=== PATIENT | female | born 1985 | race African-American/Black ===

== ENCOUNTER 2023-11-11 13:28 | Outpatient (REF) | payer BC, SELFPAY ==
--- NOTE | ~2023-11-11 | US_ITS ---
EXAMINATION: US PELVIS CLINICAL INFORMATION: History of uterine fibroids. COMPARISON: None available. TECHNIQUE: Ultrasound of the pelvis is performed using both transabdominal and transvaginal transducers along with Doppler. Transvaginal imaging is performed due to inadequate visualization transabdominally. FINDINGS: UTERUS: The uterus is anteverted and measures 8.8 x 5.9 x 6.4 cm. The double wall endometrial thickness is 6 mm. The uterus is smooth in contour and has normal myometrial echogenicity. 4 uterine fibroids are seen with 3 on the left side of the uterine body and one near the fundus. They range in size from 1.2 x 0.7 x 1.4 cm to 2.2 x 2.1 x 2.2 cm. ADNEXA: Both ovaries are visualized. There is normal color flow to the adnexa. There is no ovarian torsion. There is no pelvic ascites or fluid collection. Right ovary measures 2.8 x 1.9 x 2.0 cm for a volume of 5.6 mL. Left ovary measures 3.6 x 0.9 x 2.2 cm for a volume of 3.7 mL. US/US pelvic and transvaginal IMPRESSION: Uterine fibroids.
== END 2023-11-11 13:29 | disposition home or self-care (01) ==
LOC: HO.US 13:28
PROVIDERS: PCP Internal Medicine; Visit Provider Advanced Practice Midwife
DX: N92.0 Excessive and frequent menstruation with regular cycle (principal)
CPT/HCPCS: 76830; 76856

== ENCOUNTER 2025-04-16 14:09 | Outpatient (AMB) | payer BC, SELFPAY ==
--- NOTE | 2025-04-16 14:21 | A.OFFPC_ITS ---
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 Allergies Seasonal Allergies Allergy (Verified 04/16/25 14:25) Runny nose, watery eyes, SOB Red wine Allergy (Uncoded 04/16/25 14:25) Itchy Tobacco use date assessed: 04/16/25 Dental Screening Dental Screen Date: 04/16/25 Did you have a dental visit in the last 12 months?: Yes Did you have a dental problem in the last 6 months where you did not have access to dental care?: No Was dental information given to patient?: Patient has dentist HPI HPI Comments History of Present Illness Details This is a 39-year-old female with a past medical history of prediabetes, sickle cell trait, vitamin-D deficiency, anemia and seasonal allergies presenting to establish care. She transferred from [facility]. She is due for a physical exam. Patient endorses intermittent sensation of mild discomfort in her left ear since June of 2024. She has a history of seasonal allergies in his taking Zyrtec 10 mg daily for the past month. She was treated for an ear infection with antibiotics last June. She denies malodorous discharge, decreased hearing or hearing loss, dizziness or headache with this. No fevers or chills. She does have nasal congestion this allergy season. She would like to make sure she does not have an ear infection now. She endorses left knee pain since summer. Her chiropractor was working on it, but she recommended further evaluation. She had a remote history of knee trauma in her 20s. No recent trauma. Denies swelling, redness, tick bites, skin rashes. She will sometimes feel popping or clicking in her knee when she stretches. Her knee pain bothers her more when she is on stairs. Application of icy hot at night provides temporary relief. Patient was recently diagnosed with ADHD by the psychiatrist in [place]. They are reviewing treatment options. OBROSY is [facility]. Denies family history of colon cancer. We discussed colonoscopy screening at age 44 years. Patient usually gets recommended vaccination, but she did not get influenza vaccine this fall and had the flu. Patient had Tdap vaccine during her with her 4-year-old daughter. ROS: Constitutional: No unexplained weight loss, fever, chills, fatigue or night sweats. Eyes: No vision changes, blurry vision, double vision, eye pain, eye redness, eye discharge. ENT: No hearing loss, sinus pain, ear pain, sore throat, see HPI Respiratory: No shortness of breath, cough or sputum production. Cardiovascular: No chest pain, chest pressure or chest discomfort. No palpitations or pedal edema. Gastrointestinal: No anorexia, nausea, vomiting or diarrhea. No abdominal pain or blood in stool. Genitourinary: No dysuria, hematuria, urinary frequency. Neurologic: No headache, dizziness, syncope, unilateral weakness, ataxia, numbness or tingling in the extremities. Musculoskeletal: See HPI. Hematologic/Lymphatics: No bleeding or bruising. No painful lymph nodes. Skin: No rash or itching. Endocrine: No cold or heat intolerance. No polyuria or polydipsia. Psychiatric: No depression or anxiety. No SI/HI. Physical exam: Constitutional: Alert, in no distress. Head: Normocephalic. Eyes: Pupils are equal, round and reactive to light. Extraocular muscles intact. Ear, Nose and Throat: Canals clear. TMs normal celaya with bilateral tiny serous effusions. Nasal mucosa mildly pale and inferior turbinates 2+. No nasal discharge. Sinuses nontender. No oral lesions. Neck: Supple, Full range of motion. No lymphadenopathy. No palpable thyroid masses. Respiratory: Clear to auscultation. Cardiovascular: S1 S2 regular. No murmurs. Gastrointestinal: Abdomen soft, non-tender, non-distended. Normal bowel sounds. No palpable masses. Neurologic: No focal neurological deficits. Symmetric patellar reflexes. Moves all extremities spontaneously. Sensation intact bilaterally. Skin: No rashes. Knee: Full range of motion bilaterally. Bilateral anterior knee crepitus with flexion and extension. Tender medial aspect of the left knee. No laxity of the knee joints. Negative Yeimy maneuver bilaterally. Normal gait. No edema or discoloration. Extremities: Warm and well perfused. No clubbing, cyanosis or edema. Intact peripheral pulses bilaterally. Psychiatric: Normal mood and affect [facility] Medical History (Updated 04/16/25 @ 15:18 by KAIT Youssef) Anemia Vitamin D deficiency Sickle cell trait Routine physical examination Allergic rhinitis ADHD Discomfort of left ear Left knee pain Prediabetes Surgical History (Updated 04/16/25 @ 15:11 by KAIT Youssef) History of surgery on lower extremity History of hysteroscopy History of section Family History (Updated 04/16/25 @ 14:30 by Yvrose Dumont MA) Father Asthma Diabetes Cardiovascular disease Maternal Grandmother Cardiovascular disease Paternal Grandmother Alcoholism Maternal Grandfather Alcoholism Paternal Grandfather Alcoholism Sister Leukemia Social History [facility] Patient Tobacco Use Status: Never used Tobacco e-Cigarette/Vaping Use: Never Used Second Hand Smoke Exposure: No service: No Current occupational status: employed Current occupation: Professor Current occupational exposures/hazards: No Cognitive needs: No Hearing needs: No Vision needs: No Questionnaire PHQ-9 Over the last 2 weeks, how often have you been bothered by any of the following problems? 1. Little interest or pleasure in doing things: not at all 2. Feeling down, depressed, or hopeless: not at all 3. Trouble falling or staying asleep, or sleeping too much: not at all 4. Feeling tired or having little energy: not at all 5. Poor appetite or overeating: not at all 6. Feeling bad about yourself - or that you are a failure or have let yourself or your family down: not at all 7. Trouble concentrating on things, such as reading the newspaper or watching television: not at all 8. Moving or speaking so slowly that other people could have noticed. Or the opposite - being so fidgety or restless that you have been moving around a lot more than usual: not at all 9. Thoughts that you would be better off or of hurting yourself in some way: not at all Total score: 0 Depression Screening Interpretation: Negative Depression Screening Done: Yes 03356 - PHQ-9 Billing: Yes Source: Developed by Drs. Clay Saha, Keila Louie, Albert Lopez and colleagues, with an educational vee from real trends. Thrive Questionnaire Date Thrive assessed: 04/16/25 I am a: Patient What is your living situation today?: I have a steady place to live Within the past 12 months, did the food you bought not last and you didn't have the money to get more?: Never true Within the past 12 months, did you worry whether your food would run out before you got money to buy more?: Never true Do you have trouble paying for medicines?: No Do you have trouble getting transportation to medical appointments?: No Do you have trouble paying your heating and electricity bill?: No Do you have trouble taking care of your child, family member or friend?: No Do you have trouble with day-to-day activities such as bathing, preparing meals, shopping, managing finances, etc.?: No Are you currently unemployed and looking for a job?: No Are you interested in more education?: No Please select the resources that you would like help with: None Currently or been in a relationship where the following occur: No concerns reported THRIVE Score: 0 AUDIT C Alcohol Use Questionnaire (AUDIT-C) 1. How often do you have a drink containing alcohol?: Never Total Score: 0 Score Reviewed/Action Taken: No GAY-7 AMB Questionnaire GAY-7 Feeling nervous, anxious, or on edge: 0 = Not at all Not being able to stop or control worryin = Not at all Worrying too much about different things: 0 = Not at all Trouble relaxin = Not at all Being so restless that it is hard to sit still: 0 = Not at all Becoming easily annoyed or irritable: 0 = Not at all Feeling afraid as if something awful might happen: 0 = Not at all Total GAY-7 score (0-4 normal; 5-9 mild; 10-14 moderate; 15-21 severe): 0 Source: Developed by Drs. Clay Saha, Keila Louie, Albert Lopez and colleagues, with an educational vee from real trends. GAY-7 Assessment Billing GAY-7 Assessment Tool: GAY-7 Assessment 82167 Physical exam (Primary Care) Vital Signs: Last Vital Signs Temp 98.4 F 04/16/25 14:31 Pulse 76 04/16/25 14:31 BP 116/80 04/16/25 14:31 Pulse Ox 96 04/16/25 14:31 Oxygen Delivery Method Room Air 04/16/25 14:31 BMI result Body Mass Index 36.8 Tobacco/Smoking Status: Tobacco use Status Tobacco use date assessed 04/16/25 04/16/25 14:34 Patient Tobacco Use Status Never used Tobacco 04/16/25 14:34 e-Cigarette/Vaping Use Never Used 04/16/25 14:34 PHQ-9: PHQ-9 Score PHQ-9: Total score 0 04/16/25 14:44 Depression Screening Interpretation: Negative Thrive Assessment: Date of Thrive Assessment Date Thrive assessed 04/16/25 04/16/25 14:23 Currently or been in a relationship where the following occur: No concerns reported Coding Level of Care Code New Pt Prev Care 40-64y(07861) Diagnoses Prediabetes R73.03 Left knee pain M25.562 Discomfort of left ear H92.02 Routine physical examination Z00.00 Vitamin D deficiency E55.9 Additional Codes GAY-7 Assessment Billing - GAY-7 Assessment Tool: GAY-7 Assessment 44436 ([id number]) PHQ-9 - 43290 - PHQ-9 Billing: Yes ([id number]) Assessment & Plan Assessment & Plan (1) Prediabetes: Code(s): R73.03 - Prediabetes Category: Medical Plan: Recommended low carbohydrate, low sugar diet. Patient stopped drinking alcohol a few months ago. Check hemoglobin A1c. (2) Left knee pain: Code(s): M25.562 - Pain in left knee Category: Medical Plan: Differential reviewed. Check Lyme serology. Check x-ray. To consider referral to physical therapy pending results. (3) Discomfort of left ear: Code(s): H92.02 - Otalgia, left ear Category: Medical Plan: Normal exam aside from small serous effusion which I suspect is related to seasonal allergies. Continue Zyrtec and trial of Flonase 1-2 sprays per nostril twice daily. (4) Routine physical examination: Code(s): Z00.00 - Encounter for general adult medical examination without abnormal findings Category: Medical Plan: Patient is seen today for a routine physical. As part of this visit we reviewed the following issues, which are considered and essential part of preventative health in this age group: - Breast Cancer screening mammogram ordered - Annual Program Dir exam - Blood pressure screening - Cholesterol screening - Osteoporosis prevention including calcium/vitamin D intake, weight bearing exercise & smoking cessation - Nutritional and exercise counseling - Counseling of injury prevention including fire prevention, smoke alarms and seat belt usage - Screening for depression - Prevention of and/or testing for infectious diseases declined since patient has testing done with Gynecology - Education about skin cancer - Recommendations about immunizations - Recommendation of an eye exam - Screening for substance abuse (5) Vitamin D deficiency: Code(s): E55.9 - Vitamin D deficiency, unspecified Category: Medical Plan: Check vitamin-D level Plan Follow up for left knee pain pending results. Follow up for physical exam in 1 year. Orders: Orders Lipid Panel Today E78.5 - Hyperlipidemia, unspecified, H92.02 - Otalgia, left ear, M25.562 - Pain in left knee, R73.03 - Prediabetes Comprehensive Met. Panel Today H92.02 - Otalgia, left ear, M25.562 - Pain in left knee, R73.03 - Prediabetes Hemoglobin A1c Today E11.9 - Type 2 diabetes mellitus without complications, H92.02 - Otalgia, left ear, M25.562 - Pain in left knee, R73.03 - Prediabetes XR knee LT 3V Today M25.562 - Pain in left knee MM screening mammo BI Today Z12.31 - Encounter for screening mammogram for malignant neoplasm of breast TSH reflex Free T4 Today H92.02 - Otalgia, left ear, M25.562 - Pain in left knee, R73.03 - Prediabetes Vitamin D 25-OH (D2 and D3) Today H92.02 - Otalgia, left ear, M25.562 - Pain in left knee, M85.80 - Other specified disorders of bone density and structure, unspecified site, R73.03 - Prediabetes Complete Blood Count Auto Diff Today M25.562 - Pain in left knee IRON PROFILE Today D64.9 - Anemia, unspecified, H92.02 - Otalgia, left ear, M25.562 - Pain in left knee, R73.03 - Prediabetes Lyme IgG/IgM w/reflex to WB Today M25.562 - Pain in left knee
[2025-04-16 14:31] VITALS: BP 116/80; PULSE 76; TEMP 36.9; O2SAT 96; BMI 36.8
== END 2025-04-16 15:06 | disposition home or self-care (01) ==
LOC: HO.HMCFM 14:10
PROVIDERS: PCP Physician Assistant Medical; Visit Provider Physician Assistant Medical
DX: R73.03 Prediabetes (principal); M25.562 Pain in left knee; H92.02 Otalgia, left ear; Z00.00 Encounter for general adult medical examination without abnormal findings; E55.9 Vitamin D deficiency, unspecified

== ENCOUNTER → 2025-04-16 14:09 | Outpatient (BNVA) | payer BC, SELFPAY | PROVIDERS: PCP Physician Assistant Medical; Visit Provider Physician Assistant Medical | DX: Z00.00 Encounter for general adult medical examination without abnormal findings (principal); R73.03 Prediabetes; E55.9 Vitamin D deficiency, unspecified; M25.562 Pain in left knee; H92.02 Otalgia, left ear; D64.9 Anemia, unspecified | CPT/HCPCS: 96127 ==

== ENCOUNTER 2025-05-14 13:10 | Outpatient (REF) | payer BC, SELFPAY | END 2025-05-14 13:11 | disposition home or self-care (01) | LOC: HO.MAMMO 13:10 | PROVIDERS: PCP Physician Assistant Medical; Visit Provider Physician Assistant Medical | DX: Z12.31 Encounter for screening mammogram for malignant neoplasm of breast (principal) | CPT/HCPCS: 77063; 77067 ==

== ENCOUNTER → 2025-05-14 13:15 | Outpatient (BNV) | payer BC, SELFPAY | PROVIDERS: PCP Physician Assistant Medical; Visit Provider Internal Medicine | DX: Z12.31 Encounter for screening mammogram for malignant neoplasm of breast (principal) | CPT/HCPCS: 77063; 77067 ==

== ENCOUNTER 2025-06-18 09:54 | Outpatient (REF) | payer BC, SELFPAY ==
--- NOTE | ~2025-06-18 | XR_ITS ---
EXAMINATION: XR KNEE 3 VIEWS LEFT HISTORY: M25.562 - Pain in left knee COMPARISON: There are no prior studies available for comparison. FINDINGS: Three views of the left knee are submitted. Osseous mineralization is normal. There is no fracture or dislocation. The joint spaces are preserved. The soft tissues are unremarkable. There is no joint effusion. XR/XR knee LT 3V IMPRESSION: Unremarkable examination of the left knee. Electronically signed by: Clay Tatum MD 06/18/2025 11:56 AM EDT
[2025-06-18 10:17] LABS: MANUAL DIFF FLAG NO
--- OUTSIDE RECORDS SUMMARY | 2025-06-18 10:42 | XMS_ITS | Encounter Summary ---
Author Organization [facility] Address [address] [facility] [address] [place] [address] Phone Care Team Providers Care Oxygen Tank Filler Name Role Phone Jennie Sow MD Primary Care Provider [phone] Jennie Sow MD Unavailable [phone] Encounter Details Date Type Department Care Team (Late st Contact Info) Description 03/02/2023 Transcribe Orders [facility] [address] [place] [address] Jennifer Quezada PA [address] [place] [phone] [email or web address] Social History Tobacco Use Types Packs/Day Years Used Date Smoking Tobacco: Never Smokeless Tobacco: Never Alcohol Use Standard Drinks/Week Comments Yes 2 (1 standard drink = 0.6 oz pur e alcohol) recreationally Comments No Sex and Gender Information Value Date Recorded Sex Assigned at Not on file Legal Sex Female 12:30 PM EDT Gender Identity Not on file Sexual Orientation Not on file Occupation Industry Job Start Date Job End Date professor Not on file Not on file Not on file documented as of this encounter Plan of Treatment Not on file documented as of this encounter Visit Diagnoses Not on filedocumented in this encounter Care Teams Oxygen Tank Filler Relationship Specialty Start Date End Date Jennie Sow MD [address] [place] [address] [email or web address] PCP - General Internal Medicine 09/07/18 Jennie Sow MD [address] [place] [address] [email or web address] Insurance Assigned Provider 03/04/24 documented as of this encounter Additional Source Comments The information contained in this document represents components of the legal health record. It is not the complete legal health record.[facility]
[2025-06-18 11:06] LABS: Hematocrit 36.0 % (37.0-47.0); Hemoglobin 11.7 g/dl (12.0-16.0); Imm Gran Abs Auto 0.01 X10*3/uL (0.00-0.03); Imm Gran Pct Auto 0.2 % (0.0-0.4); Lymphocytes Absolute Auto 2.3 X10*3/uL (1.2-4.9); Mean Corpuscular HGB Conc 32.5 g/dl (31.0-35.0); Mean Corpuscular Hemoglobin 25.8 pg (27.0-33.0); Mean Corpuscular Volume 79.3 fL (80.0-98.0); NRBC Abs Auto 0.000 X10*3/uL (0.0-0.012); NRBC Pct Auto 0.0 /100WBC (0.0-0.2); Platelet Count 301 X10*3/uL (160-400); Red Blood Count 4.54 X10*6/uL (4.20-5.50); White Blood Count 5.7 X10*3/uL (4.8-10.8)
[2025-06-18 11:16] LABS: Hemoglobin A1C 122.9413 umol/L; Total Hemoglobin (HGBA1C) 3061.9596 umol/L
[2025-06-18 11:54] LABS: Alanine Aminotransferase 24 U/L (0-31); Albumin Level 4.1 g/dL (3.5-5.0); Alkaline Phosphatase 86 U/L (39-117); Anion Gap 10 (12-20); Aspartate Amino Transferase 31 U/L (5-31); Blood Urea Nitrogen 10 mg/dL (9-16); Calcium 8.8 mg/dL (8.4-10.2); Carbon Dioxide 26 mmol/L (22-29); Chloride 110 mmol/L (96-108); Cholesterol 166 mg/dL (<200); Estimated Glomerular Filt Rate > 60; HDL Cholesterol 38 mg/dL (>40); Iron 35 mcg/dL (30-160); Percent Iron Saturation 13 % (15-50); Potassium 4.2 mmol/L (3.3-5.1); Sodium 142 mmol/L (135-145); Total Iron Binding Capacity 263 mcg/dL (228-428); Total Protein 7.1 g/dL (6.5-8.0); Triglycerides 140 mg/dL (<150); Unsaturated Iron Binding 228 ug/dL
[2025-06-19 18:13] LABS: Lyme Abs Screen <0.90 index
[2025-06-22 16:24] LABS: Vitamin D 25-OH, D2 <4 ng/mL; Vitamin D 25-OH, D3 29 ng/mL; Vitamin D 25-OH, Total 29 ng/mL (30-100)
== END 2025-06-18 09:55 | disposition home or self-care (01) ==
LOC: HO.LAB 09:54
PROVIDERS: PCP Physician Assistant Medical; Visit Provider Physician Assistant Medical
DX: E11.9 Type 2 diabetes mellitus without complications (principal); M25.562 Pain in left knee; H92.02 Otalgia, left ear; E78.5 Hyperlipidemia, unspecified; M85.80 Other specified disorders of bone density and structure, unspecified site; D64.9 Anemia, unspecified
CPT/HCPCS: 36415; 73562; 80053; 80061; 82306; 83036; 83540; 84443; 85025; 86617; 86618

== ENCOUNTER → 2025-06-18 10:16 | Outpatient (BNV) | payer BC, SELFPAY | PROVIDERS: PCP Physician Assistant Medical; Visit Provider Radiology Diagnostic Radiology | DX: M25.562 Pain in left knee (principal) | CPT/HCPCS: 73562 ==

== ENCOUNTER 2025-09-27 08:05 | Outpatient (REF) | payer BC, SELFPAY ==
--- OUTSIDE RECORDS SUMMARY | 2025-09-28 08:10 | XMS_ITS | Encounter Summary ---
Author Organization [facility] Address [address] [place] [address] Phone Care Team Providers Care Flag Maker Name Role Phone Jennie Sow MD Primary Care Provider [phone] Jennie Sow MD Unavailable [phone] Encounter Details Date Type Department Care Team (Latest Contact Info) Description 09/09/2018 Transcribe Orders [facility] [address] 2nd [place] [address] Jennifer Quezada PA [address] [place] [address] [email or web address] Routine general medical examination at a health [...] (09/09/2018 11:02 AM EDT) COLOR Yellow Yellow [facility] CLARITY Clear [facility] GLUCOSE Negative Negative [facility] BILI Negative Negative [facility] KETONES Negative Negative [facility] SPECIFIC GRAVITY 1.015 1.005 - 1.030 [facility] BLOOD Negative Negative [facility] PH 6.0 5.0 - 8.0 [facility] Protein-UA Negative Negative [facility] NITRITE Negative Negative [facility] Leukocyte esterase, ur Negative Negative [facility] Urine (Urine) 09/09/2018 11: 02 AM EDT 09/09/2018 11:16 AM EDT us Jennifer CARBALLO URINE ORDERABLES Final Result [facility] [address] [place] [address] * (ABNORMAL) CBC and differential (09/09/2018 11:02 AM EDT) WBC 5.08 3.40 - 11.20 K/uL [facility] RBC 4.18 3.80 - 4.80 M/uL [facility] HGB 11.5(L) 12.0 - 15.0 g/dL [facility] HCT 33.6(L) 36.0 - 46.0 % [facility] PLT 246 130 - 400 K/uL [facility] MCV 80.4 79.0 - 98.0 fL [facility] MCH 27.5 27.0 - 34.8 pg [facility] MCHC 34.2 31.5 - 36.0 g/dL [facility] RDW 13.5 10.8 - 14.6 % [facility] MPV 10.3 9.4 - 12.4 fl [facility] NRBC 0.00 /100 WBCs [facility] ABSOLUTE NRBC 0.00 K/uL [facility] DIFF METHOD Auto [facility] NEUTS 62.9 45.30 - 77.70 % [facility] LYMPHS 27.8 12.30 - 39.70 % [facility] MONOS 6.3 4.10 - 12.80 % [facility] EOS 1.8 0 - 7.2 % [facility] BASOS 1.0 0 - 2.80 % [facility] Granulocytes, immature (%) 0.2 0.0 - 0.9 % [facility] ABSOLUTE NEUTS 3.20 1.40 - 7.70 K/uL [facility] ABSOLUTE LYMPHS 1.41 0.60 - 3.20 K/uL [facility] ABSOLUTE MONOS 0.32 0.11 - 0.59 K/uL [facility] ABSOLUTE EOS 0.09 0.01 - 0.50 K/uL [facility] ABSOLUTE BASOS 0.05 0.00 - 0.08 K/uL [facility] Granulocytes, immature 0.01 0.00 - 0.05 K/uL [facility] Blood 09/09/2018 11:0 2 AM EDT 09/09/2018 11:07 AM EDT Jennifer CARBALLO LAB BLOOD ORDERABLES Final Resu lt [address] [address] * TSH with reflex (09/09/2018 11:02 AM EDT) TSH 2.12 0.27 - 4.20 uIU/mL [facility] Blood 09/09/2018 11:0 2 AM EDT 09/09/2018 11:07 AM EDT Jennifer Pilar CARBALLO LAB BLOOD ORDERABLES Final Resu lt [address] [address] * (ABNORMAL) Lipid panel (09/09/2018 11:02 AM EDT) HDL 57 mg/dL [facility] Comment: Interpretation: Risk Level Females Decreased >55mg/dL Average 50-55 mg/dL Increased <50 mg/dL CHOLESTEROL 154 0 - 240 mg/dL [facility] TRIGLYCERIDES 52 30 - 160 mg/dL [facility] LDL 87 50 - 129 mg/dL [facility] Comment: LDL levels in terms of risk for coronary heart disease: <100 mg/dL: Optimal 100-129 mg/dL: Near or above optimal 130-159 mg/dL: Borderline high 160-189 mg/dL: High >190 mg/dL: Very High CARDIAC RISK RATIO 2.7(L) 3.3 - 4.4 [facility] Blood 09/09/2018 11:0 2 AM EDT 09/09/2018 11:07 AM EDT us Jennifer CARBALLO LAB BLOOD ORDERABLES Final Resu lt [address] [address] * Comprehensive metabolic panel (09/09/2018 11:02 AM EDT) SODIUM 138 133 - 146 mmol/L [facility] POTASSIUM 4.3 3.3 - 5.1 mmol/L [facility] CHLORIDE 104 96 - 108 mmol/L [facility] CO2 22 21 - 35 mmol/L [facility] BUN 6 6 - 19 mg/dL [facility] CREATININE 0.70 0.5 - 1.5 mg/dL [facility] GLUCOSE 94 70 - 99 mg/dL [facility] ALBUMIN 4.1 3.9 - 4.8 g/dL [facility] TOTAL PROTEIN 7.2 6.5 - 8.0 g/dL [facility] CALCIUM 8.9 8.4 - 10.3 mg/dL [facility] ALKALINE PHOSPHATASE 71 39 - 117 U/L [facility] TOTAL BILIRUBIN 0.4 0.0 - 1.2 mg/dL [facility] AST 16 0 - 37 U/L [facility] ALT 9 0 - 40 U/L [facility] GLOBULIN 3.1 1 - 4.8 g/dL [facility] EGFR 113 >59 mL/min/1.7 3m2 [facility] Comment:If patient is black, multiply result by 1.159. Estimated glomerular filtration rate calculated using the CKD-EPI equation. ANION GAP 16 10 - 20 mmol/L [facility] Blood 09/09/2018 11:0 2 AM EDT 09/09/2018 11:07 AM EDT us Jennifer CARBALLO LAB BLOOD ORDERABLES Final Resu lt [facility] [address] [place] [address] documented in this encounter Visit Diagnoses Diagnosis [...] documented as of this encounter Care Teams Flag Maker Relationship Specialty Start Date End Date Jennie Sow MD [address] [place] [address] [email or web address] PCP - General Internal Medicine 09/07/18 Jennie Sow MD [address] [place] [address] [email or web address] Insurance Assigned Provider 03/04/24 08/04/25 documented as of this encounter Additional Source Comments The information contained in this document represents components of the legal health record. It is not the complete legal health record.[facility]
--- OUTSIDE RECORDS SUMMARY | 2025-09-28 08:10 | XMS_ITS | Encounter Summary ---
Author Organization [facility] Address [address] [facility] [address] [place] [address] Phone Care Team Providers Care Transit Department Clerk Name Role Phone Jennie Sow MD Primary Care Provider [phone] Jennie Sow MD Unavailable [phone] Encounter Details Date Type Department Care Team (Late st Contact Info) Description 01/13/2019 Procedure Pass [place] Admitting Dept - Virtual Department [address] [place] [address] Social History Tobacco Use Types Packs/Day Years [...] documented as of this encounter Care Teams Transit Department Clerk Relationship Specialty Start Date End Date Jennie Sow MD [address] [place] [address] [email or web address] PCP - General Internal Medicine 09/07/18 Jennie Sow MD [address] [place] [address] [email or web address] Insurance Assigned Provider 03/04/24 08/04/25 documented as of this encounter Additional Source Comments The information contained in this document represents components of the legal health record. It is not the complete legal health record.[facility]
--- OUTSIDE RECORDS SUMMARY | 2025-09-28 08:10 | XMS_ITS | Encounter Summary ---
Author Organization [facility] Address [address] [facility] [address] [place] [address] Phone Care Team Providers Care Streets And Buildings Decorator Name Role Phone Jennie Sow MD Primary Care Provider [phone] Jennie Sow MD Unavailable [phone] Encounter Details Date Type Department Care Team (Late st Contact Info) Description 03/02/2023 Transcribe Orders [facility] [address] [place] [address] Jennifer Quezada PA [address] [place] [id number] [email or web address] Social History Tobacco Use Types Packs/Day Years [...] on filedocumented in this encounter Care Teams Streets And Buildings Decorator Relationship Specialty Start Date End Date Jennie Sow MD [address] [place] [address] [email or web address] PCP - General Internal Medicine 09/07/18 Jennie Sow MD [address] [place] [address] [email or web address] Insurance Assigned Provider 03/04/24 08/04/25 documented as of this encounter Additional Source Comments The information contained in this document represents components of the legal health record. It is not the complete legal health record.[facility]
--- OUTSIDE RECORDS SUMMARY | 2025-09-28 08:10 | XMS_ITS | Encounter Summary ---
Author Organization [facility] Address [address] [place] [address] Phone Care Team Providers Care Freelance Designer Name Role Phone Jennie Sow MD Primary Care Provider [phone] Jennie Sow MD Unavailable [phone] Encounter Details Date Type Department Care Team (Latest Contact Info) Description 11/25/2021 Transcribe Orders Virtual Department [address] [place] [address] Jennifer Quezada PA [address] [place] [address] [email or web address] Encounter for laboratory testing for COVID-19 virus [...] COVID Testing Status In-house testing being performed [facility] Symptomatic? YES [facility] Other 11/27/2021 2:25 PM EST 11/27/2021 5:20 PM EST Jennifer CARBALLO BODY FLUIDS AND STOOLS ORDERABL ES Final Result [facility] [address] [place] [address] documented in this encounter Visit Diagnoses Diagnosis [...] documented as of this encounter Care Teams Freelance Designer Relationship Specialty Start Date End Date Jennie Sow MD [address] [place] [address] [email or web address] PCP - General Internal Medicine 09/07/18 Jennie Sow MD [address] [place] [address] [email or web address] Insurance Assigned Provider 03/04/24 08/04/25 documented as of this encounter Additional Source Comments The information contained in this document represents components of the legal health record. It is not the complete legal health record.[facility]
--- OUTSIDE RECORDS SUMMARY | 2025-09-28 08:10 | XMS_ITS | Encounter Summary ---
Author Organization [facility] Address [address] [facility] [address] [place] [address] Phone Care Team Providers Care Landcare Facilitator Name Role Phone Jennie Sow MD Primary Care Provider [phone] Jennie Sow MD Unavailable [phone] Encounter Details Date Type Department Care Team (Latest Contact Info) Description 09/30/2018 Transcribe Orders [facility] Specimen Processing [address] [place] [address] Ny Masterson CNM [address] [facility], [address] [place] [address] [email or web address] Screening examination for venereal disease (Primary Dx) [...] EDT) CHLAMYDIA TRACHOMATIS Not Detected Not Detected [facility] NEISERIA GONORRHOEAE Not Detected Not Detected [facility] SPECIMEN TYPE ENDOCERVICAL TRACK PRODUCTION ENGINEER [facility] Other (Endocervical) 09/30/2018 3:00 PM EDT 09/30/2018 7:03 PM EDT Ny Gusman Masterson CNM NON CULTURE MICROBIOLO GY Edited Result - Final [facility] [address] [place] [address] documented in this encounter Visit Diagnoses Diagnosis Screening examination for venereal disease- Primary documented in this encounter Additional Health Concerns Infection Onset Date Last Indicated Resolved Time CoV-Risk 11/25/2021 11/27/2021 12/07/2021 1:22 AM EST CoV-Risk 03/27/2022 03/27/2022 04/07/2022 1:23 AM EDT CoV-Risk 04/13/2022 04/14/2022 04/15/2022 9:44 AM EDT COVID-19 04/14/2022 04/14/2022 05/05/2022 1:22 AM EDT documented as of this encounter Care Teams Landcare Facilitator Relationship Specialty Start Date End Date Jennie Sow MD [address] [place] [address] PCP - General Internal Medicine 09/07/18 Jennie Sow MD [address] [place] [address] [email or web address] Insurance Assigned Provider 03/04/24 08/04/25 documented as of this encounter Additional Source Comments The information contained in this document represents components of the legal health record. It is not the complete legal health record.[facility]
--- OUTSIDE RECORDS SUMMARY | 2025-09-28 08:10 | XMS_ITS | Clinical Summary ---
Author Organization [facility] Address [address] [facility] [address] [place] [address] Phone Care Team Providers Care Rn Clinical Coordinator Name Role Phone Jennie Sow MD Primary Care Provider Allergies No known active allergies Medications multivitamin-min erals-lutein (CENTRUM SILVER) Tab Take 1 tablet by mouth daily. Active Active Problems Problem Noted Date Diagnosed Date Sickle cell trait 03/24/2019 Fertility testing 03/24/2019 Overview (03/24/2019): Ultrasound normal except polyps Polyps removed 2018 Day 3 FSH/estradiol normal Planning frozen donor IUI Short menstrual cycle 11/07/2018 Overview (03/24/2019): 25 days Iron deficiency anemia secpaulino crys to inadequate dietary iron intake 11/07/2018 Overview (11/07/2018): Hgb 11.5. Does not eat red meat. Started iron supplement Sickle cell carrier Resolved Problems Problem Noted Date Diagnosed Date Resolved Date Endometrial polyp 11/07/2018 03/24/2019 Overview (11/07/2018): Intermenstrual spotting Hx of removal of endometrial polyps in 2013 in [place] Immunizations Immunization Administration Dates Next Due Varicella 03/01/2019,01/30/2019 Family History Medical History Relation Comments Dementia Father Diabetes Father Heart attack Father Fibroids Mother Fibroids Sister Relation Status Comments Brother Alive Father Alive Maternal Grandfather Maternal Grandmother Mother Alive Paternal Grandfather Paternal Grandmother Sister Alive Social History Tobacco Use Types Packs/Day Years Used Date Smoking Tobacco: Never Smokeless Tobacco: Never Alcohol Use Standard Drinks/Week Comments Yes 2 (1 standard drink = 0.6 oz pur e alcohol) recreationally Education Answer Date Recorded Are you interested in more education? Not on eusebia e 03/26/2023 Are you concerned about learning? Not on file 03/26/2023 No 03/26/2023 No 03/26/2023 Digital Access Answer Date Recorded No 04/23/2023 No 04/23/2023 No 04/23/2023 Reliable internet access at home? Not on file 04/23/2023 Device with a working camera? Not on file Comments No Sex and Gender Information Value Date Recorded Sex Assigned at Not on file Legal Sex Female 12:30 PM EDT Gender Identity Not on file Sexual Orientation Not on file Occupation Industry Job Start Date Job End Date professor Not on file Not on file Not on file Last Filed Vital Signs Vital Sign Reading Time Taken Comments Blood Pressure 122/82 09/14/2023 9:21 PM EDT Pulse 80 09/14/2023 9:21 PM EDT Temperature 36.3 C (97.3 F) 09/14/2023 9:21 PM EDT Respiratory Rate 18 09/14/2023 9:21 PM EDT Oxygen Saturation 100% 09/14/2023 9:21 PM EDT Inhaled Oxygen Concentration - - Weight 111.1 kg (245 lb) 09/14/2023 7:29 PM EDT Height 180.3 cm (5' 11 ) 09/14/2023 7:29 PM EDT Body Mass Index 34.17 09/14/2023 7:29 PM EDT Plan of Treatment Health Maintenance Due Date Last Done Comments DEPRESSION SCREENING 1996 PAP SMEAR 2005 MAMMOGRAM 2024 INFLUENZA VACCINE (#1) 2025 08/04/2019 COVID-19 VACCINE (4 - 5-2 6 season) 2025 12/04/2021, 04/09/2021, 03/12/2021 SCREENING FOR DIABETES 01/08/2026 01/08/2023 Adult Td,Tdap Booster 05/02/2030 05/02/2020 SMOKING STATUS SCREENING (On ce After 26 Yrs) Completed 03/24/2019 HEPATITIS C SCREENING Completed 05/11/2023 , 05/11/2023, 09/30/2018 HIV ONE-TIME SCREENING (18-6 5 YEARS) Completed 05/11/2023 HEPATITIS A VACCINES Aged Out No long er eligible based on patient's age to complete this topic HIB VACCINES Aged Out No longer eligi ble based on patient's age to complete this topic MENINGOCOCCAL VACCINES (ACWY) Aged Out No longer eligible based on patient's age to complete this topic MENINGOCOCCAL VACCINES (B) Aged Out N o longer eligible based on patient's age to complete this topic PNEUMOCOCCAL VACCINES (0-49 years) Aged Out No longer eligible b ased on patient's age to complete this topic Medical Devices Implanted Type Area Communications Coordinator Device Identifier Shelf Expiration Date Model / Serial / Lot Right Fibula Hardware Procedures Procedure Name Priority Date/Time Associated Diagnosis Comments HEPATITIS C ANTIBODY, QUALITATIVE Routine 05/11/2023 1:52 PM EDT Routine screening for STI (sexually transmitted infection) from Last 3 Months or Most Recently Relevant to Health Maintenance Results * Hepatitis C antibody, qualitative (05/11/2023 1:52 PM EDT) HCV NON-REACTIV E NON-REACTI VE [facility] Blood 05/11/2023 1:52 PM EDT 05/11/2023 1:56 PM EDT us Jennifer CARBALLO LAB BLOOD ORDERABLES Final Resu lt [facility] [address] [place] [address] from Last 3 Months or Most Recently Relevant to Health Maintenance Insurance [facility] HMO POS [facility] HMO POS Care Teams Rn Clinical Coordinator Relationship Specialty Start Date End Date Jennie Sow MD [address] [place] [address] [email or web address] PCP - General Internal Medicine 09/07/18 Additional Source Comments The information contained in this document represents components of the legal health record. It is not the complete legal health record.[facility]
--- OUTSIDE RECORDS SUMMARY | 2025-09-28 08:10 | XMS_ITS | Encounter Summary ---
Author Organization [facility] Address [address] [place] [address] Phone Care Team Providers Care Spray Gun Repairer Helper Name Role Phone Jennie Sow MD Primary Care Provider [phone] Jennie Sow MD Unavailable [phone] Encounter Details Date Type Department Care Team (Latest Contact Info) Description 03/27/2022 Transcribe Orders Virtual Department [address] [place] [address] Jennifer Quezada PA [address] [place] [address] [email or web address] Runny nose (Primary Dx) Social History Tobacco [...] be available within 24 to 48 hrs. [facility] Symptomatic? YES [facility] Other 03/27/2022 3:01 PM EDT 03/27/2022 5:42 PM EDT Jennifer CARBALLO BODY FLUIDS AND STOOLS ORDERABL ES Final Result [facility] [address] [place] [address] [facility] [address] [place] [address] documented in this encounter Visit Diagnoses Diagnosis Runny nose- Primary Other diseases of nasal cavity and sinuses documented in this encounter Additional Health Concerns Infection Onset Date Last Indicated Resolved Time CoV-Risk 03/27/2022 03/27/2022 04/07/2022 1:23 AM EDT CoV-Risk 04/13/2022 04/14/2022 04/15/2022 9:44 AM EDT COVID-19 04/14/2022 04/14/2022 05/05/2022 1:22 AM EDT documented as of this encounter Care Teams Spray Gun Repairer Helper Relationship Specialty Start Date End Date Jennie Sow MD [address] [place] [address] [email or web address] PCP - General Internal Medicine 09/07/18 Jennie Sow MD [address] [place] [address] [email or web address] Insurance Assigned Provider 03/04/24 08/04/25 documented as of this encounter Additional Source Comments The information contained in this document represents components of the legal health record. It is not the complete legal health record.[facility]
--- OUTSIDE RECORDS SUMMARY | 2025-09-28 08:10 | XMS_ITS | Encounter Summary ---
Author Organization [facility] Address [address] [place] [address] Phone Care Team Providers Care Cover Remover Name Role Phone Jennie Sow MD Primary Care Provider Jennie Sow MD Unavailable [phone] Encounter Details Date Type Department Care Team (Late st Contact Info) Description 02/18/2023 Ancillary Orders [facility], X-Ray - Main [facility] [address] [place] [address] Jennifer Quezada PA [address] [place] [address] [email or web address] Bronchitis Social History Tobacco Use Types Packs/Day [...] chronic documented in this encounter Care Teams Cover Remover Relationship Specialty Start Date End Date Jennie Sow MD [address] [place] [address] PCP - General Internal Medicine 09/07/18 Jennie Sow MD [address] [place] [address] Insurance Assigned Provider 03/04/24 08/04/25 documented as of this encounter Additional Source Comments The information contained in this document represents components of the legal health record. It is not the complete legal health record.[facility]
--- OUTSIDE RECORDS SUMMARY | 2025-09-28 08:10 | XMS_ITS | Encounter Summary ---
Author Organization [facility] Address [address] [place] [address] Phone Care Team Providers Care Oncology Navigator Name Role Phone Jennie Sow MD Primary Care Provider Jennie Sow MD Unavailable [phone] Encounter Details Date Type Department Care Team (Latest Contact Info) Description 03/02/2022 Transcribe Orders Virtual Department [address] [place] [address] Jennifer Quezada PA [address] [place] [address] [email or web address] Other chest pain (Primary Dx) Social History [...] documented as of this encounter Care Teams Oncology Navigator Relationship Specialty Start Date End Date Jennie Sow MD [address] [place] [email or web address] PCP - General Internal Medicine 10/10/18 Jennie Sow MD [address] [place] [address] [email or web address] Insurance Assigned Provider 03/04/24 08/04/25 documented as of this encounter Additional Source Comments The information contained in this document represents components of the legal health record. It is not the complete legal health record.[facility]
--- OUTSIDE RECORDS SUMMARY | 2025-09-28 08:10 | XMS_ITS | Encounter Summary ---
Author Organization [facility] Address [address] [facility] [address] [place] [address] Phone Care Team Providers Care Assurance Assistant Name Role Phone Jennie Sow MD Primary Care Provider [phone] Jennie Sow MD Unavailable [phone] Encounter Details Date Type Department Care Team (Latest Contact Info) Description 01/14/2023 Transcribe Orders Virtual Department [address] [place] [address] Jennifer Quezada PA [address] [place] [address] [email or web address] Cough, unspecified type (Primary Dx); Wheezing Social [...] Wheezing documented in this encounter Care Teams Assurance Assistant Relationship Specialty Start Date End Date Jennie Sow MD [address] [place] [email or web address] PCP - General Internal Medicine 09/07/18 Jennie Sow MD [address] [place] [address] [email or web address] Insurance Assigned Provider 03/04/24 08/04/25 documented as of this encounter Additional Source Comments The information contained in this document represents components of the legal health record. It is not the complete legal health record.[facility]
== END 2025-09-27 08:06 | disposition home or self-care (01) ==
LOC: HO.HOSX 08:05
PROVIDERS: Visit Provider Physician Assistant
DX: Z13.89 Encounter for screening for other disorder (principal)

== ENCOUNTER 2025-09-27 09:46 | Outpatient (AMB) | payer BC, SELFPAY ==
--- NOTE | 2025-09-27 09:48 | A.OFFVIS_ITS ---
Vital Signs 09/27/25 09:53 Height 5 ft 11 in Weight 260 lb BMI 36.3 Intake Visit Reasons: Left knee pain and giving way Intake Note: Manisha is a 40 year old female who presents with complaints of progressively worsening left knee pain and giving way. The patient states that her symptoms have gotten worse over the last year in spite of continued non operative treatme nts. The patient did suffer an injury to her right ankle which required surgery for a right distal fibula fracture. The patient reports mild discomfort in her right ankle. She describes her left knee pain as sharp in nature. Most of the pain is along the medial and anterior aspects of her knee. She has failed the last 6 weeks of conservative treatment which has included Tylenol, anti-inflamma tory medicines, physical therapy exercises and a home exercise program. Allergies Seasonal Allergies Allergy (Verified 09/27/25 09:54) Runny nose, watery eyes, SOB Red wine Allergy (Uncoded 09/27/25 09:54) Itchy Medication List - Last Reconciled 09/27/25 by Kashif Ramirez MD cetirizine (Zyrtec) 10 mg PO DAILY PRN doxylamine succinate (Nighttime Sleep-Aid (doxylamine)) 25 mg PO BEDTIME PRN PFSH Medical History Anemia Vitamin D deficiency Sickle cell trait Routine physical examination Allergic rhinitis ADHD Discomfort of left ear Left knee pain Prediabetes Surgical History History of surgery on lower extremity History of hysteroscopy History of section Family History (Updated 04/16/25 @ 14:30 by Yvrose Dumont MA) Father Asthma Diabetes Cardiovascular disease Maternal Grandmother Cardiovascular disease Paternal Grandmother Alcoholism Maternal Grandfather Alcoholism Paternal Grandfather Alcoholism Sister Leukemia Social History Housing: Condominium Patient Tobacco Use Status: Never used Tobacco e-Cigarette/Vaping Use: Never Used Second Hand Smoke Exposure: No service: No Current occupational status: employed Current occupation: Professor Current occupational exposures/hazards: No Cognitive needs: No Hearing needs: No Vision needs: No Physical Exam Vital Signs: BMI result Body Mass Index 36.3 Const Other: Well-nourished well-developed very friendly female awake alert and oriented x3 in no acute distress Extrem Other: Left knee examination shows a minimal effusion, minimal crepitus with range of motion, tenderness along her medial joint line, positive Josh's test, no instability Results Reviewed Results Reviewed: Standing full weight-bearing x-rays of the patient's left knee show mild diffuse joint space narrowing, no acute bony abnormalities Assessment & Plan Assessment & Plan (1) Tear of medial meniscus of left knee: Code(s): S83.242A - Other tear of medial meniscus, current injury, left knee, initial encounter Category: Medical Plan Ms. Jose Mata presents with left knee pain and mechanical symptoms most likely due to a medial meniscus tear. Thus, I will send the patient for an MRI of her left knee for further evaluation. I will see her back once the MRI is completed to discuss the findings and treatment options. Feel free to call me at any time should questions regarding her orthopedic management arise. Thank you very much for asking me to see this very friendly patient. I spent 21 minutes in reviewing the patient's records and imaging studies, seeing the patient and documenting in the medical record. Orders: Orders MR knee LT wo con 09/28/25 S83.242A - Other tear of medial meniscus, current injury, left knee, initial encounter Coding Level of Care Code New Pt Level 3 (84029) Complex EM visit Add On G2211 Diagnoses Tear of medial meniscus of left knee S83.242A
[2025-09-27 09:53] VITALS: BMI 36.3
--- OUTSIDE RECORDS SUMMARY | 2025-09-27 11:28 | XMS_ITS | Encounter Summary ---
Author Organization [facility] Address [address] [place] [address] Phone Care Team Providers Care Hitcher Name Role Phone Jennie Sow MD Primary Care Provider [phone] Jennie Sow MD Unavailable [phone] Encounter Details Date Type Department Care Team (Latest Contact Info) Description 11/25/2021 Transcribe Orders Virtual Department [address] [place] [address] Jennifer Quezada PA [address] [place] [address] [email or web address] Encounter for laboratory testing for COVID-19 virus (Primary Dx) Social History Tobacco Use Types Packs/Day Years [...] on file documented as of this encounter Results * COVID-19 PCR Order (11/27/2021 2:25 PM EST) COVID Testing Status In-house testing being performed [facility] Symptomatic? YES [facility] Other 11/27/2021 2:25 PM EST 11/27/2021 5:20 PM EST Jennifer CARBALLO BODY FLUIDS AND STOOLS ORDERABL ES Final Result [facility] [address] [place] [address] documented in this encounter Visit Diagnoses Diagnosis Encounter for laboratory testing for COVID-19 virus- Primary documented in this encounter Additional Health Concerns Infection Onset Date Last Indicated Resolved Time CoV-Risk 11/25/2021 11/27/2021 12/07/2021 1:22 AM EST CoV-Risk 03/27/2022 03/27/2022 04/07/2022 1:23 AM EDT CoV-Risk 04/13/2022 04/14/2022 04/15/2022 9:44 AM EDT COVID-19 04/14/2022 04/14/2022 05/05/2022 1:22 AM EDT documented as of this encounter Care Teams Hitcher Relationship Specialty Start Date End Date Jennie Sow MD [address] [place] [address] [email or web address] PCP - General Internal Medicine 09/07/18 Jennie Sow MD [address] [place] [address] [email or web address] Insurance Assigned Provider 03/04/24 08/04/25 documented as of this encounter Additional Source Comments The information contained in this document represents components of the legal health record. It is not the complete legal health record.[facility]
--- OUTSIDE RECORDS SUMMARY | 2025-09-27 11:28 | XMS_ITS | Encounter Summary ---
Author Organization [facility] Address [address] [place] [address] Phone Care Team Providers Care Tiedown Operator Name Role Phone Jennie Sow MD Primary Care Provider [phone] Jennie Sow MD Unavailable [phone] Encounter Details Date Type Department Care Team (Late st Contact Info) Description 02/18/2023 Ancillary Orders [facility], X-Ray - Main Hospital [address] [place] [address] Jennifer Quezada PA [address] [place] [address] [email or web address] Bronchitis Social History Tobacco Use Types Packs/Day Years [...] documented as of this encounter Results * XR CHEST PA AND LATERAL 2 VIEWS (02/18/2023 4:13 PM EDT) Anatomical Region Laterality Modality Chest Computed Radiogr aphy 02/18/2023 5:36 PM EDT Impressions 02/18/2023 5:37 PM EDT No acute findings. Narrative 02/18/2023 5:37 PM EDT XR CHEST PA AND LATERAL 2 VIEWS COMPARISON: December 24, 2022 FINDINGS: Lungs: Clear lungs. Pleura: No pleural effusion. No pneumothorax Heart/Mediastinum: Heart size normal. Bones/Soft Tissues: No acute finding Procedure Note Hola Cross MD, GARETT - 02/18/2023 XR CHEST PA AND LATERAL 2 VIEWS COMPARISON: December 24, 2022 FINDINGS: Lungs: Clear lungs. Pleura: No pleural effusion. No pneumothorax Heart/Mediastinum: Heart size normal. Bones/Soft Tissues: No acute finding IMPRESSION: No acute findings. Jennifer CARBALLO IMG XR CHEST Final Result documented in this encounter Visit Diagnoses Diagnosis Bronchitis Bronchitis, not specified as acute or chronic Bronchitis Bronchitis, not specified as acute or chronic documented in this encounter Care Teams Tiedown Operator Relationship Specialty Start Date End Date Jennie Sow MD [address] [place] [address] PCP - General Internal Medicine 09/07/18 Jennie Sow MD [address] [place] [address] Insurance Assigned Provider 03/04/24 08/04/25 documented as of this encounter Additional Source Comments The information contained in this document represents components of the legal health record. It is not the complete legal health record.[facility]
--- OUTSIDE RECORDS SUMMARY | 2025-09-27 11:28 | XMS_ITS | Encounter Summary ---
Author Organization [facility] Address [address] [facility] [address] [place] [address] Phone Care Team Providers Care Machine Inker Name Role Phone Jennie Sow MD Primary Care Provider [phone] Jennie Sow MD Unavailable [phone] Encounter Details Date Type Department Care Team (Latest Contact Info) Description 01/14/2023 Transcribe Orders Virtual Department 30 [place] [address] Jennifer Quezada PA [address] [place] [address] [email or web address] Cough, unspecified type (Primary Dx); Wheezing Social History Tobacco Use Types Packs/Day Years [...] documented as of this encounter Results * Pulmonary Function Test Reason for Exam: Cough (HISTORY CHILDHOOD ASTHMA ), Wheezing (HISTORY CHILDHOOD ASTHMA ); Type of PFT Test: Spirometry with bronchodilator, DLCO, Lung Volumes; Performing Location: [facility] (03/09/2023 2:40 PM EDT) FEV1 3.00 liters FVC 3.73 liters FEV1/FVC 80 % TLC 4.83 liters DLCO 23.7 ml/mmHg sec Anatomical Region Laterality Modality Other Impressions 03/09/2023 2:40 PM EDT PULMONARY FUNCTION STUDIES IMPRESSION: Spirometry is normal without airflow limitation or significant post-bronchodilator change. Non-specific, isolated mild restrictive physiology (TLC 4.83 L or 74% predicted) could be intra- or extrapulmonary in etiology. Normal diffusion capacity. Methacholine challenge testing could be considered if clinical suspicion of asthma remains. Pulmonary function studies were performed on this 37 y.o. female for evaluation of cough. Review of the medical record reveals that the patient is a never smoker. Prior pulmonary function studies are not available for comparison. SPIROMETRY: The FEV1 is normal at 3.00 L or 92% predicted. The FVC is normal at 3.73 L or 93% predicted. The FEV1/FVC ratio is normal at 80%. After the administration of a bronchodilator agent, there is no significant change. FLOW-VOLUME LOOPS: Evaluation of the flow-volume loops reveals normal morphology of both the inspiratory and expiratory limbs with no significant difference when comparing the tracings performed pre- and post-bronchodilator. LUNG VOLUME MEASUREMENTS BY PLETHYSMOGRAPHY: The total lung capacity is mildly impaired at 4.83 L or 74% predicted. The functional residual capacity is mildly impaired at 2.65 L or 77% predicted. DIFFUSION CAPACITY: The diffusion capacity is normal at 23.7 mL/mmHg sec or 93% predicted. Resting oxygen saturation is 98% on room air. Jennifer CARBALLO PFT ORDERABLES Final Result documented in this encounter Visit Diagnoses Diagnosis Cough, unspecified type- Primary Wheezing Cough, unspecified type Wheezing documented in this encounter Care Teams Machine Inker Relationship Specialty Start Date End Date Jennie Sow MD [address] [place] [phone] [email or web address] PCP - General Internal Medicine 09/07/18 Jennie Sow MD [address] [place] [address] [email or web address] Insurance Assigned Provider 03/04/24 08/04/25 documented as of this encounter Additional Source Comments The information contained in this document represents components of the legal health record. It is not the complete legal health record.[facility]
--- OUTSIDE RECORDS SUMMARY | 2025-09-27 11:28 | XMS_ITS | Encounter Summary ---
Author Organization [facility] Address [address] [facility] [address] [place] [address] Phone Care Team Providers Care Ring Sorter Name Role Phone Jennie Sow MD Primary Care Provider [phone] Jennie Sow MD Unavailable [phone] Encounter Details Date Type Department Care Team (Late st Contact Info) Description 03/02/2023 Transcribe Orders [facility] PFT Lab [address] [place] [address] Jennifer Quezada PA [address] [place] [address] [email or web address] Social History Tobacco Use Types Packs/Day Years [...] on filedocumented in this encounter Care Teams Ring Sorter Relationship Specialty Start Date End Date Jennie Sow MD 15 [place] [address] [email or web address] PCP - General Internal Medicine 09/07/18 Jennie Sow MD [address] [place] [address] [email or web address] Insurance Assigned Provider 03/04/24 08/04/25 documented as of this encounter Additional Source Comments The information contained in this document represents components of the legal health record. It is not the complete legal health record.[facility]
--- OUTSIDE RECORDS SUMMARY | 2025-09-27 11:28 | XMS_ITS | Encounter Summary ---
Author Organization [facility] Address [address] [place] [address] Phone Care Team Providers Care Machine Programmer Name Role Phone Jennie Sow MD Primary Care Provider [phone] Jennie Sow MD Unavailable [phone] Encounter Details Date Type Department Care Team (Latest Contact Info) Description 09/30/2018 Transcribe Orders [facility] Specimen Processing 30 [place] [address] Ny Masterson CNM [address] [facility], [address] [place] [address] [email or web address] Screening examination for venereal disease (Primary Dx) Social History Tobacco Use Types Packs/Day Years Used Date Smoking Tobacco: Never Smokeless Tobacco: Never Alcohol Use Standard Drinks/Week Comments Yes 0 (1 standard drink = 0.6 oz pur [...] documented as of this encounter Results * Chlamydia Trachomatis and Neisseria Gonorrhoeae Nucleic Acid Detection (09/30/2018 3:00 PM EDT) CHLAMYDIA TRACHOMATIS Not Detected Not Detected [facility] NEISERIA GONORRHOEAE Not Detected Not Detected [facility] SPECIMEN TYPE ENDOCERVICAL [facility]IESEL [facility]ICE [facility] Other (Endocervical) 09/30/2018 3:00 PM EDT 09/30/2018 7:03 PM EDT Ny Gusman Masterson CNM NON CULTURE MICROBIOLO GY Edited Result - Final [facility] [address] [place] [address] documented in this encounter Visit Diagnoses Diagnosis Screening examination for venereal disease- Primary documented in this encounter Additional Health Concerns Infection Onset Date Last Indicated Resolved Time CoV-Risk 11/25/2021 11/27/2021 12/07/2021 1:22 AM EST CoV-Risk 03/27/2022 03/27/2022 04/07/2022 1:23 AM EDT CoV-Risk 04/13/2022 04/14/2022 04/15/2022 9:44 AM EDT COVID-19 04/14/2022 04/14/2022 05/05/2022 1:22 AM EDT documented as of this encounter Care Teams Machine Programmer Relationship Specialty Start Date End Date Jennie Sow MD [address] [place] [address] PCP - General Internal Medicine 09/07/18 Jennie Sow MD [address] [place] [address] Insurance Assigned Provider 03/04/24 08/04/25 documented as of this encounter Additional Source Comments The information contained in this document represents components of the legal health record. It is not the complete legal health record.[facility]
--- OUTSIDE RECORDS SUMMARY | 2025-09-27 11:28 | XMS_ITS | Encounter Summary ---
Author Organization [facility] Address [address] [facility] [address] [place] [address] Phone Care Team Providers Care Excavator Backhoe Operator Name Role Phone Jennie Sow MD Primary Care Provider [phone] Jennie Sow MD Unavailable [phone] Encounter Details Date Type Department Care Team (Late st Contact Info) Description 01/13/2019 Procedure Pass [place] Admitting Dept - Virtual Department 30 [place] [address] Social History Tobacco Use Types Packs/Day Years [...] Diagnoses Not on filedocumented in this encounter Additional Health Concerns Infection Onset Date Last Indicated Resolved Time CoV-Risk 11/25/2021 11/27/2021 12/07/2021 1:22 AM EST CoV-Risk 03/27/2022 03/27/2022 04/07/2022 1:23 AM EDT CoV-Risk 04/13/2022 04/14/2022 04/15/2022 9:44 AM EDT COVID-19 04/14/2022 04/14/2022 05/05/2022 1:22 AM EDT documented as of this encounter Care Teams Excavator Backhoe Operator Relationship Specialty Start Date End Date Jennie Sow MD 15 [place] [address] [email or web address] PCP - General Internal Medicine 09/07/18 Jennie Sow MD 15 [place] [address] [email or web address] Insurance Assigned Provider 03/04/24 08/04/25 documented as of this encounter Additional Source Comments The information contained in this document represents components of the legal health record. It is not the complete legal health record.[facility]
--- OUTSIDE RECORDS SUMMARY | 2025-09-27 11:29 | XMS_ITS | Encounter Summary ---
Author Organization [facility] Address [address] [place] [address] Phone Care Team Providers Care Time Clock Inspector Name Role Phone Jennie Sow MD Primary Care Provider [phone] Jennie Sow MD Unavailable [phone] Encounter Details Date Type Department Care Team (Latest Contact Info) Description 09/09/2018 Transcribe Orders [facility] Laboratory [address] [place] [address] Jennifer Quezada PA [address] [place] [address] [email or web address] Routine general medical examination at a health care facility (Primary Dx); Insomnia, unspecified type; Loss of weight Social History Tobacco Use Types Packs/Day Years Used Date Smoking Tobacco: Never Assessed Comments Unknown Sex and Gender Information Value Date Recorded Sex Assigned at Not on file Legal Sex Female 12:30 PM EDT Gender Identity Not on file Sexual Orientation Not on file documented as of this encounter Plan of Treatment Not on file documented as of this encounter Results * Urinalysis (09/09/2018 11:02 AM EDT) COLOR Yellow Yellow [facility] CLARITY Clear [facility] GLUCOSE Negative Negative [facility] BIL[facility] Negative Negative [facility] KETONES Negative Negative [facility] SPECIFIC GRAVITY 1.015 1.005 - 1.030 [facility] BLOOD Negative Negative [facility] PH 6.0 5.0 - 8.0 [facility] Protein-UA Negative Negative [facility] NITRITE Negative Negative [facility] Leukocyte esterase, ur Negative Negative [facility] Urine (Urine) 09/09/2018 11: 02 AM EDT 09/09/2018 11:16 AM EDT us Jennifer CARBALLO URINE ORDERABLES Final Result [facility] [address] [place] [address] * (ABNORMAL) CBC and differential (09/09/2018 11:02 AM EDT) WBC 5.08 3.40 - 11.20 K/uL [facility] RBC 4.18 3.80 - 4.80 M/uL [facility] HGB 11.5(L) 12.0 - 15.0 g/dL [facility] HCT 33.6(L) 36.0 - 46.0 % [facility] PLT 246 130 - 400 K/uL [facility] MCV 80.4 79.0 - 98.0 fL [facility] MCH 27.5 27.0 - 34.8 pg [facility] MCHC 34.2 31.5 - 36.0 g/dL [facility] RDW 13.5 10.8 - 14.6 % [facility] MPV 10.3 9.4 - 12.4 fl [facility] NRBC 0.00 /100 WBCs [facility] ABSOLUTE NRBC 0.00 K/uL [facility] DIFF METHOD [employer] [facility] NEUTS 62.9 45.30 - 77.70 % [facility] LYMPHS 27.8 12.30 - 39.70 % [facility] MONOS 6.3 4.10 - 12.80 % [facility] EOS 1.8 0 - 7.2 % [facility] BASOS 1.0 0 - 2.80 % [facility] Granulocytes, immature (%) 0.2 0.0 - 0.9 % [facility] ABSOLUTE NEUTS 3.20 1.40 - 7.70 K/uL [facility] ABSOLUTE LYMPHS 1.41 0.60 - 3.20 K/uL [facility] ABSOLUTE MONOS 0.32 0.11 - 0.59 K/uL [facility] ABSOLUTE EOS 0.09 0.01 - 0.50 K/uL [facility] ABSOLUTE BASOS 0.05 0.00 - 0.08 K/uL [facility] Granulocytes, immature 0.01 0.00 - 0.05 K/uL [facility] Blood 09/09/2018 11:0 2 AM EDT 09/09/2018 11:07 AM EDT Jennifer CARBALLO LAB BLOOD ORDERABLES Final Resu lt [address] [address] * TSH with reflex (09/09/2018 11:02 AM EDT) TSH 2.12 0.27 - 4.20 uIU/mL [facility] Blood 09/09/2018 11:0 2 AM EDT 09/09/2018 11:07 AM EDT Jennifer Pilar CARBALLO LAB BLOOD ORDERABLES Final Resu lt [address] [address] * (ABNORMAL) Lipid panel (09/09/2018 11:02 AM EDT) HDL 57 mg/dL [facility] Comment: Interpretation: Risk Level Females Decreased >55mg/dL Average 50-55 mg/dL Increased <50 mg/dL CHOLESTEROL 154 0 - 240 mg/dL [facility] TRIGLYCERIDES 52 30 - 160 mg/dL [facility] LDL 87 50 - 129 mg/dL [facility] Comment: LDL levels in terms of risk for coronary heart disease: <100 mg/dL: Optimal 100-129 mg/dL: Near or above optimal 130-159 mg/dL: Borderline high 160-189 mg/dL: High >190 mg/dL: Very High CARDIAC RISK RATIO 2.7(L) 3.3 - 4.4 C [facility] Blood 09/09/2018 11:0 2 AM EDT 09/09/2018 11:07 AM EDT us Jennifer CARBALLO LAB BLOOD ORDERABLES Final Resu lt [address] [address] * Comprehensive metabolic panel (09/09/2018 11:02 AM EDT) SODIUM 138 133 - 146 mmol/L [facility] POTASSIUM 4.3 3.3 - 5.1 mmol/L [facility] CHLORIDE 104 96 - 108 mmol/L [facility] CO2 22 21 - 35 mmol/L [facility] BUN 6 6 - 19 mg/dL [facility] CREATININE 0.70 0.5 - 1.5 mg/dL [facility] GLUCOSE 94 70 - 99 mg/dL [facility] ALBUMIN 4.1 3.9 - 4.8 g/dL [facility] TOTAL PROTEIN 7.2 6.5 - 8.0 g/dL [facility] CALCIUM 8.9 8.4 - 10.3 mg/dL [facility] ALKALINE PHOSPHATASE 71 39 - 117 U/L [facility] TOTAL BILIRUBIN 0.4 0.0 - 1.2 mg/dL [facility] AST 16 0 - 37 U/L [facility] ALT 9 0 - 40 U/L [facility] GLOBULIN 3.1 1 - 4.8 g/dL [facility] EGFR 113 >59 mL/min/1.7 3m2 [facility] Comment:If patient is black, multiply result by 1.159. Estimated glomerular filtration rate calculated using the CKD-EPI equation. ANION GAP 16 10 - 20 mmol/L [facility] Blood 09/09/2018 11:0 2 AM EDT 09/09/2018 11:07 AM EDT us Jennifer CARBALLO LAB BLOOD ORDERABLES Final Resu lt [facility] [address] [place] [address] documented in this encounter Visit Diagnoses Diagnosis Routine general medical examination at a health care facility- Primary Insomnia, unspecified type Loss of weight documented in this encounter Additional Health Concerns Infection Onset Date Last Indicated Resolved Time CoV-Risk 11/25/2021 11/27/2021 12/07/2021 1:22 AM EST CoV-Risk 03/27/2022 03/27/2022 04/07/2022 1:23 AM EDT CoV-Risk 04/13/2022 04/14/2022 04/15/2022 9:44 AM EDT COVID-19 04/14/2022 04/14/2022 05/05/2022 1:22 AM EDT documented as of this encounter Care Teams Time Clock Inspector Relationship Specialty Start Date End Date Jennie Sow MD [address] [place] [address] [email or web address] PCP - General Internal Medicine 09/07/18 Jennie Sow MD [address] [place] [address] [email or web address] Insurance Assigned Provider 03/04/24 08/04/25 documented as of this encounter Additional Source Comments The information contained in this document represents components of the legal health record. It is not the complete legal health record.[facility]
--- OUTSIDE RECORDS SUMMARY | 2025-09-27 11:30 | XMS_ITS | Encounter Summary ---
Author Organization [facility] Address [address] [place] [address] Phone Care Team Providers Care Director Park Name Role Phone Jennie Sow MD Primary Care Provider [phone] Jennie Sow MD Unavailable [phone] Encounter Details Date Type Department Care Team (Latest Contact Info) Description 03/27/2022 Transcribe Orders Virtual Department [address] [place] [address] Jennifer Quezada PA [address] [place] [address] [email or web address] Runny nose (Primary Dx) Social History Tobacco Use Types [...] this encounter Results * COVID-19 PCR Order (03/27/2022 3:01 PM EDT) COVID Testing Status Specimen received in analyzing lab. Results should be available within 24 to 48 hrs. [facility] Symptomatic? YES [facility] Other 03/27/2022 3:01 PM EDT 03/27/2022 5:42 PM EDT Jennifer CARBALLO BODY FLUIDS AND STOOLS ORDERABL ES Final Result [facility] [address] [place] [address] [facility] [address] [place] [address] documented in this encounter Visit Diagnoses Diagnosis Runny nose- Primary Other diseases of nasal cavity and sinuses documented in this encounter Additional Health Concerns Infection Onset Date Last Indicated Resolved Time CoV-Risk 03/27/2022 03/27/2022 04/07/2022 1:23 AM EDT CoV-Risk 04/13/2022 04/14/2022 04/15/2022 9:44 AM EDT COVID-19 04/14/2022 04/14/2022 05/05/2022 1:22 AM EDT documented as of this encounter Care Teams Director Park Relationship Specialty Start Date End Date Jennie Sow MD [address] [place] [address] [email or web address] PCP - General Internal Medicine 09/07/18 Jennie Sow MD [address] [place] [address] [email or web address] Insurance Assigned Provider 03/04/24 08/04/25 documented as of this encounter Additional Source Comments The information contained in this document represents components of the legal health record. It is not the complete legal health record.[facility]
--- OUTSIDE RECORDS SUMMARY | 2025-09-27 11:30 | XMS_ITS | Encounter Summary ---
Author Organization [facility] Address [address] [place] [address] Phone Care Team Providers Care Freight Broker Agent Name Role Phone Jennie Sow MD Primary Care Provider Jennie Sow MD Unavailable [phone] Encounter Details Date Type Department Care Team (Latest Contact Info) Description 03/02/2022 Transcribe Orders Virtual Department [address] [place] [address] Jennifer Quezada PA [address] [place] [address] [email or web address] Other chest pain (Primary Dx) Social History Tobacco Use Types [...] XR CHEST PA AND LATERAL 2 VIEWS (03/24/2022 3:57 PM EDT) Anatomical Region Laterality Modality Chest Computed Radiogr aphy 03/24/2022 5:55 PM EDT Impressions 03/24/2022 6:17 PM EDT Patchy left greater than right basilar opacities, may reflect atelectasis or early pneumonia in an appropriate clinical setting. Narrative 03/24/2022 6:17 PM EDT XR CHEST PA AND LATERAL 2 VIEWS COMPARISON: None. FINDINGS: Devices/Tubes/Lines: None. Lungs: Patchy left greater than right basilar opacities. Pleura: No pleural effusion or pneumothorax. Heart/Mediastinum: Normal heart and mediastinum. Bones/Soft Tissues: No significant skeletal abnormality. Procedure Note Bucky Peacock MD - 03/24/2022 XR CHEST PA AND LATERAL 2 VIEWS COMPARISON: None. FINDINGS: Devices/Tubes/Lines: None. Lungs: Patchy left greater than right basilar opacities. Pleura: No pleural effusion or pneumothorax. Heart/Mediastinum: Normal heart and mediastinum. Bones/Soft Tissues: No significant skeletal abnormality. IMPRESSION: Patchy left greater than right basilar opacities, may reflect atelectasisor early pneumonia in an appropriate clinical setting. Jennifer CARBALLO IMG XR CHEST Final Result documented in this encounter Visit Diagnoses Diagnosis Other chest pain- Primary Other chest pain documented in this encounter Additional Health Concerns Infection Onset Date Last Indicated Resolved Time CoV-Risk 03/27/2022 03/27/2022 04/07/2022 1:23 AM EDT CoV-Risk 04/13/2022 04/14/2022 04/15/2022 9:44 AM EDT COVID-19 04/14/2022 04/14/2022 05/05/2022 1:22 AM EDT documented as of this encounter Care Teams Freight Broker Agent Relationship Specialty Start Date End Date Jennie Sow MD [address] [place] [address] PCP - General Internal Medicine 10/10/18 Jennie Sow MD [address] [place] [address] [email or web address] Insurance Assigned Provider 03/04/24 08/04/25 documented as of this encounter Additional Source Comments The information contained in this document represents components of the legal health record. It is not the complete legal health record.[facility]
== END 2025-09-27 10:06 | disposition home or self-care (01) ==
PROVIDERS: PCP Physician Assistant Medical; Visit Provider Orthopaedic Surgery
DX: S83.242A Other tear of medial meniscus, current injury, left knee, initial encounter (principal)
CPT/HCPCS: 99203

== ENCOUNTER 2025-11-01 10:20 | Outpatient (AMB) | payer BC, SELFPAY ==
--- NOTE | 2025-11-01 10:24 | A.OFFPC_ITS ---
Vital Signs 11/01/25 10:31 Height 5 ft 11 in Weight 269 lb 8 oz BMI 37.6 BP 100/68 Blood Pressure Location Rt brachial Position Sitting Respiration 15 Pulse 72 Pulse Source Pulse Oximeter Temp 97.2 F Temp Source Temporal Artery Scan Pulse Oximetry (%) 95 Oxygen Delivery Method Room Air Intake Visit Reasons: ADHD med discussion Intake Note: Manisha presents in the office today for a medication check in. Malware Analyst Required: No Is last menstrual period known: Yes Last menstrual period: 10/18/25 Post menopausal: No Patient : No Allergies Seasonal Allergies Allergy (Verified 11/01/25 10:28) Runny nose, watery eyes, SOB Red wine Allergy (Uncoded 11/01/25 10:28) Itchy Tobacco use date assessed: 11/01/25 Dental Screening Dental Screen Date: 11/01/25 Did you have a dental visit in the last 12 months?: Yes Did you have a dental problem in the last 6 months where you did not have access to dental care?: No Was dental information given to patient?: Patient has dentist HPI HPI Comments History of Present Illness Details This is a 40-year-old female with a past medical history of anemia, sickle cell trait, vitamin-D deficiency and ADHD and prediabetes presenting to discuss ADHD medication. She was diagnosed by a license psychologist, Jennie Sanchez.. She uploaded the evaluation to her portal which I reviewed. She is interested in starting medication. 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 It is difficult for her to complete tasks and remain focused. Her partner is very helpful at home, and she uses coping strategies to help manage her symptoms. No illicit drug use. Uses marijuana. She had labs done. She had prediabetes with a hemoglobin A1c of 5.8%. Her vitamin-D level was mildly decreased, and she was instructed to take vitamin D3 1000 IU daily. She also had mild anemia and was instructed to increase iron rich foods in her diet or take an iron supplement [id number]. She is due to repeat labs. ROS: Constitutional: No unexplained weight loss, fever, chills Cardiovascular: No chest pain or palpitations Psychiatric: No depression or SI/HI Physical exam: Constitutional: Alert, in no distress. Neck: Supple, Full range of motion. No lymphadenopathy. No palpable thyroid masses. Respiratory: Clear to auscultation. Cardiovascular: S1 S2 regular. No murmury. Psychiatric: Normal mood and affect [facility] Medical History Anemia Vitamin D deficiency Sickle cell trait Routine physical examination Allergic rhinitis ADHD Discomfort of left ear Left knee pain Prediabetes Surgical History History of surgery on lower extremity History of hysteroscopy History of section Family History Father Asthma Diabetes Cardiovascular disease Maternal Grandmother Cardiovascular disease Paternal Grandmother Alcoholism Maternal Grandfather Alcoholism Paternal Grandfather Alcoholism Sister Leukemia Social History (Updated 11/01/25 @ 10:31 by Yvrose Dumont CMA) Housing: Condominium Alcohol intake: never Patient Tobacco Use Status: Never used Tobacco e-Cigarette/Vaping Use: Never Used Second Hand Smoke Exposure: No Substance Use Type: Marijuana service: No Current occupational status: employed Current occupation: Professor Current occupational exposures/hazards: No Cognitive needs: No Hearing needs: No Vision needs: No Female Reproductive History Menstrual Date of last menstrual period: 10/18/25 Questionnaire Thrive Questionnaire Date Thrive assessed: 04/16/25 I am a: Patient What is your living situation today?: I have a steady place to live Within the past 12 months, did the food you bought not last and you didn't have the money to get more?: Never true Within the past 12 months, did you worry whether your food would run out before you got money to buy more?: Never true Do you have trouble paying for medicines?: No Do you have trouble getting transportation to medical appointments?: No Do you have trouble paying your heating and electricity bill?: No Do you have trouble taking care of your child, family member or friend?: No Do you have trouble with day-to-day activities such as bathing, preparing meals, shopping, managing finances, etc.?: No Are you currently unemployed and looking for a job?: No Are you interested in more education?: No Please select the resources that you would like help with: None Currently or been in a relationship where the following occur: No concerns reported THRIVE Score: 0 Physical exam (Primary Care) Vital Signs: Last Vital Signs Temp 97.2 F 12/04/25 10:31 Pulse 72 11/01/25 10:31 Resp 15 11/01/25 10:31 BP 100/68 11/01/25 10:31 Pulse Ox 95 11/01/25 10:31 Oxygen Delivery Method Room Air 11/01/25 10:31 BMI result Body Mass Index 37.6 Tobacco/Smoking Status: Tobacco use Status Tobacco use date assessed 11/01/25 11/01/25 10:34 Patient Tobacco Use Status Never used Tobacco 11/01/25 10:31 e-Cigarette/Vaping Use Never Used 11/01/25 10:31 Thrive Assessment: Date of Thrive Assessment Date Thrive assessed 04/16/25 11/01/25 10:26 Currently or been in a relationship where the following occur: No concerns reported Coding Level of Care Code Est Pt Level 4 (73500) Complex visit Add On G2211 Diagnoses Attention deficit hyperactivity disorder (ADHD), predominantly inattentive type F90.0 Attention deficit-hyperactivity disorder type: predominantly inattentive Prediabetes R73.03 Iron deficiency anemia, unspecified iron deficiency anemia type D50.9 Anemia type: iron deficiency Iron deficiency anemia type: unspecified iron deficiency Low vitamin D level R79.89 Assessment & Plan Assessment & Plan (1) ADHD: Code(s): F90.9 - Attention-deficit hyperactivity disorder, unspecified type Category: Medical Qualifiers: Attention deficit-hyperactivity disorder type: predominantly inattentive Qualified Code(s): F90.0 - Attention-deficit hyperactivity disorder, predominantly inattentive type Plan: Patient has implemented coping strategies for ADHD. She would like to try medication. We discussed non stimulant versus stimulant medications. Shared decision-making to try Adderall. She can start with 5 mg ER, but I wrote the prescription to take 10 mg if this is ineffective. We discussed we may need to titrate this further based on her response and tolerability. We reviewed the medication is addictive. We discussed potential side effects. If she has significant side effects she will stopped the medication and contact the office. She should minimize caffeine, avoid [id number] decongestants and other stimulants while on this medication. We discussed that she will need to sign a CSA once she is established on a dosage. Urine drug screen will be done today. (2) Prediabetes: Code(s): R73.03 - Prediabetes Category: Medical Plan: Continue efforts at weight loss. Recommended low carbohydrate, low sugar diet and avoidance of alcohol. Exercise regularly. Limit portion sizes. (3) Anemia: Code(s): D64.9 - Anemia, unspecified Category: Medical Qualifiers: Anemia type: iron deficiency Iron deficiency anemia type: unspecified iron deficiency Qualified Code(s): D50.9 - Iron deficiency anemia, unspecified Plan: Recheck labs. (4) Low vitamin D level: Code(s): R79.89 - Other specified abnormal findings of blood chemistry Plan: Recheck labs. Plan Follow up in 1 month. Orders: Orders Drug Screen Urine 11/01/25 Z13.89 - Encounter for screening for other disorder Medications: New dextroamphetamine-amphetamine 5 mg ER (Adderall XR) 5 mg PO BID 60 caps 0RF
[2025-11-01 10:31] VITALS: BP 100/68; PULSE 72; RESP 15; TEMP 36.2; O2SAT 95; BMI 37.6
--- OUTSIDE RECORDS SUMMARY | 2025-11-01 12:30 | XMS_ITS | Clinical Summary ---
Author Organization [facility] Address [address] [facility] [address] [place] [phone] Phone Care Team Providers Care Technical Applications Specialist Name Role Phone Jennie Sow MD Primary [...] removal of endometrial polyps in 2013 in [place] Immunizations Immunization Administration Dates Next Due Varicella [...] INFLUENZA VACCINE (#1) 2025 08/04/2019 COVID-19 VACCINE ( season) 2025 12/04/2021, 04/09/2021, 03/12/2021 SCREENING FOR DIABETES 01/08/2026 01/08/2023 Adult Td,Tdap Booster 05/02/2030 05/02/2020 SMOKING STATUS SCREENING (Once After 26 Yrs) Completed 03/24/2019 HEPATITIS C SCREENING Completed 05/11/2023 , 05/11/2023, 05/11/2023, Additional history exists HIV ONE-TIME SCREENING (18-65 YEARS) Completed 05/11/2023 HEPATITIS A VACCINES Aged [...] (0-49 years) Aged Out No longer eligible based on patient's age to complete this topic Medical Devices Implanted Type Area [employer] Mold Device Identifier Shelf Expiration Date Model / Serial / Lot Right Fibula Hardware Procedures Procedure Name Priority Date/Time Associated Diagnosis Comments HEPATITIS C ANTIBODY, QUALITATIVE Routine 05/11/2023 1:52 PM EDT Routine screening for STI (sexually transmitted infection) from Last 3 Months or Most Recently Relevant to Health Maintenance Results * Hepatitis C antibody, qualitative (05/11/2023 1:52 PM EDT) HCV NON-REACTIV E NON-REACTI VE [facility] Blood 05/11/2023 1:52 PM EDT 05/11/2023 1:56 PM EDT us Jennifer CARBALLO LAB BLOOD BKR ORDERABLES Final Result [facility] [address] [place] [address] from Last 3 Months or Most Recently Relevant to Health Maintenance Insurance [facility] H[facility] POS [facility] POS [facility] H[facility] POS Care Teams Technical Applications Specialist Relationship Specialty Start Date End Date Jennie Swo MD [address] [place] [phone] [email or web address] PCP - General Internal Medicine 09/07/18 Additional Source Comments The information contained in this document represents components of the legal health record. It is not the complete legal health record.[facility]
--- OUTSIDE RECORDS SUMMARY | 2025-11-01 12:30 | XMS_ITS | Encounter Summary ---
Author Organization [facility] Address [address] [place] [address] Phone Care Team Providers Care Insulation Estimator Name Role Phone Jennie Sow MD Primary Care Provider Jennie Sow MD Unavailable [phone] Encounter Details Date Type Department Care Team (Latest Contact Info) Description 11/25/2021 Transcribe Orders Virtual Department [address] [place] [address] Jennifer Quezada PA [address] [place] [address] [email or web address] Encounter for laboratory testing for COVID-19 virus [...] COVID Testing Status In-house testing being performed [facility] Symptomatic? YES [facility] Other 11/27/2021 2:25 PM EST 11/27/2021 5:20 PM EST Jennifer CARBALLO LAB GENERAL ORDERABLES Final Re sult [facility] [address] [place] [address] documented in this encounter Visit Diagnoses Diagnosis [...] documented as of this encounter Care Teams Insulation Estimator Relationship Specialty Start Date End Date Jennie Sow MD [address] [place] [address] [email or web address] PCP - General Internal Medicine 09/07/18 Jennie Sow MD [address] [place] [address] [email or web address] Insurance Assigned Provider 03/04/24 08/04/25 documented as of this encounter Additional Source Comments The information contained in this document represents components of the legal health record. It is not the complete legal health record.[facility]
--- OUTSIDE RECORDS SUMMARY | 2025-11-01 12:30 | XMS_ITS | Encounter Summary ---
Author Organization [facility] Address [address] [facility] [address] [place] [address] Phone Care Team Providers Care Cleaning Specialist Name Role Phone Jennie Sow MD Primary Care Provider [phone] Jennie Sow MD Unavailable [phone] Encounter Details Date Type Department Care Team (Latest Contact Info) Description 01/14/2023 Transcribe Orders Virtual Department [address] [place] [address] Jennifer Quezada PA [address] [place] [address] [email or web address] Cough, unspecified type (Primary Dx); Wheezing Social [...] with bronchodilator, DLCO, Lung Volumes; Performing Location: [facility] (03/09/2023 2:40 PM EDT) FEV1 3.00 liters [...] Wheezing documented in this encounter Care Teams Cleaning Specialist Relationship Specialty Start Date End Date Jennie Sow MD [address] [place] [phone] PCP - General Internal Medicine 09/07/18 Jennie Sow MD [address] [place] [address] [email or web address] Insurance Assigned Provider 03/04/24 08/04/25 documented as of this encounter Additional Source Comments The information contained in this document represents components of the legal health record. It is not the complete legal health record.[facility]
--- OUTSIDE RECORDS SUMMARY | 2025-11-01 12:30 | XMS_ITS | Encounter Summary ---
Author Organization [facility] Address [address] [facility] [address] [place] [address] Phone Care Team Providers Care Air Sampler Name Role Phone Jennie Sow MD Primary Care Provider Jennie Sow MD Unavailable [phone] Encounter Details Date Type Department Care Team (Late st Contact Info) Description 01/13/2019 Procedure Pass OR Admitting Dept - Virtual Department [address] [place] [address] Social History Tobacco Use Types Packs/Day Years [...] documented as of this encounter Care Teams Air Sampler Relationship Specialty Start Date End Date Jennie Sow MD [address] [place] [address] [email or web address] PCP - General Internal Medicine 09/07/18 Jennie Sow MD [address] [place] [address] [email or web address] Insurance Assigned Provider 03/04/24 08/04/25 documented as of this encounter Additional Source Comments The information contained in this document represents components of the legal health record. It is not the complete legal health record.[facility]
--- OUTSIDE RECORDS SUMMARY | 2025-11-01 12:30 | XMS_ITS | Encounter Summary ---
Author Organization [facility] Address [address] [facility] [address] [place] [address] Phone Care Team Providers Care Clinical Registered Nurse Name Role Phone Jennie Sow MD Primary Care Provider [phone] Jennie Sow MD Unavailable [phone] Encounter Details Date Type Department Care Team (Late st Contact Info) Description 03/02/2023 Transcribe Orders [facility] [address] [place] [address] Jennifer Quezada PA [address] [place] [phone] [email or web address] Social History Tobacco Use Types Packs/Day Years [...] on filedocumented in this encounter Care Teams Clinical Registered Nurse Relationship Specialty Start Date End Date Jennie Sow MD [address] [place], [place] [phone] [email or web address] PCP - General Internal Medicine 09/07/18 Jennie Sow MD [address] [place] [phone] [email or web address] Insurance Assigned Provider 03/04/24 08/04/25 documented as of this encounter Additional Source Comments The information contained in this document represents components of the legal health record. It is not the complete legal health record.[facility]
--- OUTSIDE RECORDS SUMMARY | 2025-11-01 12:30 | XMS_ITS | Encounter Summary ---
Author Organization [facility] Address [address] [place] [address] Phone Care Team Providers Care Marinator Name Role Phone Jennie Sow MD Primary Care Provider Jennie Sow MD Unavailable [phone] Encounter Details Date Type Department Care Team (Late st Contact Info) Description 02/18/2023 Ancillary Orders [facility], X-Ray - [facility] [address] [place] [address] Jennifer Quezada PA [address] [place] [address] [email or web address] Social History Tobacco Use Types Packs/Day [...] chronic documented in this encounter Care Teams Marinator Relationship Specialty Start Date End Date Jennie Sow MD [address] [place] [address] PCP - General Internal Medicine 09/07/18 Jennie Sow MD [address] [place] [address] Insurance Assigned Provider 03/04/24 08/04/25 documented as of this encounter Additional Source Comments The information contained in this document represents components of the legal health record. It is not the complete legal health record.[facility]
--- OUTSIDE RECORDS SUMMARY | 2025-11-01 12:31 | XMS_ITS | Encounter Summary ---
Author Organization [facility] Address [address] [place] [address] Phone Care Team Providers Care Operations Research Engineer Name Role Phone Jennie Sow MD Primary Care Provider Jennie Sow MD Unavailable [phone] Encounter Details Date Type Department Care Team (Latest Contact Info) Description 03/27/2022 Transcribe Orders Virtual Department [address] [place] [address] Jennifer Quezada PA [address] [place] [address] [email or web address] Runny nose (Primary Dx) Social History Tobacco [...] be available within 24 to 48 hrs. [facility] Symptomatic? YES [facility] Other 03/27/2022 3:01 PM EDT 03/27/2022 5:42 PM EDT us Jennifer CARBALLO LAB GENERAL ORDERABLES Final Re sult [facility] [address] [place] [address] [facility] [address] [place] [address] documented in this encounter Visit Diagnoses Diagnosis Runny nose- Primary Other diseases of nasal cavity and sinuses documented in this encounter Additional Health Concerns Infection Onset Date Last Indicated Resolved Time CoV-Risk 03/27/2022 03/27/2022 04/07/2022 1:23 AM EDT CoV-Risk 04/13/2022 04/14/2022 04/15/2022 9:44 AM EDT COVID-19 04/14/2022 04/14/2022 05/05/2022 1:22 AM EDT documented as of this encounter Care Teams Operations Research Engineer Relationship Specialty Start Date End Date Jennie Sow MD [address] [place] [address] [email or web address] PCP - General Internal Medicine 09/07/18 Jennie Sow MD [address] [place] [address] [email or web address] Insurance Assigned Provider 03/04/24 08/04/25 documented as of this encounter Additional Source Comments The information contained in this document represents components of the legal health record. It is not the complete legal health record.[facility]
--- OUTSIDE RECORDS SUMMARY | 2025-11-01 12:31 | XMS_ITS | Encounter Summary ---
Author Organization [facility] Address [address] [place] [address] Phone Care Team Providers Care Pharmacy Technologist Name Role Phone Jennie Sow MD Primary Care Provider Jennie Sow MD Unavailable [phone] Encounter Details Date Type Department Care Team (Latest Contact Info) Description 03/02/2022 Transcribe Orders Virtual Department [address] [place] [address] Jennifer Quezada PA [address] [place] [address] [email or web address] Other chest pain (Primary Dx) Social History [...] documented as of this encounter Care Teams Pharmacy Technologist Relationship Specialty Start Date End Date Jennie Sow MD [address] [place] [address] [email or web address] PCP - General Internal Medicine 09/07/18 Jennie Sow MD [address] [place] [address] [email or web address] Insurance Assigned Provider 03/04/24 08/04/25 documented as of this encounter Additional Source Comments The information contained in this document represents components of the legal health record. It is not the complete legal health record.[facility]
--- OUTSIDE RECORDS SUMMARY | 2025-11-01 12:31 | XMS_ITS | Encounter Summary ---
Author Organization [facility] Address [address] [place] [address] Phone Care Team Providers Care Hot Mill Worker Name Role Phone Jennie Sow MD Primary Care Provider Jennie Sow MD Unavailable [phone] Encounter Details Date Type Department Care Team (Latest Contact Info) Description 09/09/2018 Transcribe Orders [facility] [address] [place] [address] Jennifer Quezada PA [address] [place] [address] [email or web address] Routine general medical examination at a health [...] (09/09/2018 11:02 AM EDT) COLOR Yellow Yellow [facility] CLARITY Clear [facility] GLUCOSE Negative Negative [facility] BILI Negative Negative [facility] KETONES Negative Negative [facility] SPECIFIC GRAVITY 1.015 1.005 - 1.030 [facility] BLOOD Negative Negative [facility] PH 6.0 5.0 - 8.0 [facility] Protein-UA Negative Negative [facility] NITRITE Negative Negative [facility] Leukocyte esterase, ur Negative Negative [facility] Urine (Urine) 09/09/2018 11: 02 AM EDT 09/09/2018 11:16 AM EDT us Jennifer CARBALLO LAB URINE ORDERABLES Final Resu lt [facility] [address] [place] [address] * (ABNORMAL) CBC and differential (09/09/2018 11:02 AM EDT) WBC 5.08 3.40 - 11.20 K/uL [facility] RBC 4.18 3.80 - 4.80 M/uL [facility] HGB 11.5(L) 12.0 - 15.0 g/dL [facility] HCT 33.6(L) 36.0 - 46.0 % [facility] PLT 246 130 - 400 K/uL [facility] MCV 80.4 79.0 - 98.0 fL [facility] MCH 27.5 27.0 - 34.8 pg [facility] MCHC 34.2 31.5 - 36.0 g/dL [facility] RDW 13.5 10.8 - 14.6 % [facility] MPV 10.3 9.4 - 12.4 fl [facility] NRBC 0.00 /100 WBCs [facility] ABSOLUTE NRBC 0.00 K/uL [facility] DIFF METHOD Auto [facility] NEUTS 62.9 45.30 - 77.70 % [facility] LYMPHS 27.8 12.30 - 39.70 % [facility] MONOS 6.3 4.10 - 12.80 % [facility] EOS 1.8 0 - 7.2 % [facility] BASOS 1.0 0 - 2.80 % [facility] Granulocytes, immature (%) 0.2 0.0 - 0.9 % [facility] ABSOLUTE NEUTS 3.20 1.40 - 7.70 K/uL [facility] ABSOLUTE LYMPHS 1.41 0.60 - 3.20 K/uL [facility] ABSOLUTE MONOS 0.32 0.11 - 0.59 K/uL [facility] ABSOLUTE EOS 0.09 0.01 - 0.50 K/uL [facility] ABSOLUTE BASOS 0.05 0.00 - 0.08 K/uL [facility] Granulocytes, immature 0.01 0.00 - 0.05 K/uL [facility] Blood 09/09/2018 11:0 2 AM EDT 09/09/2018 11:07 AM EDT us Jennifer CARBALLO LAB BLOOD BKR ORDERABLES Final Result [address] [address] * TSH with reflex (09/09/2018 11:02 AM EDT) TSH 2.12 0.27 - 4.20 uIU/mL [facility] Blood 09/09/2018 11:0 2 AM EDT 09/09/2018 11:07 AM EDT Jennifer Pilar SC LAB BLOOD BKR ORDERABLES Final Result Performing Organization Address City/[facility]/ZIP Co de Phone Number [address] [address] * (ABNORMAL) Lipid panel (09/09/2018 11:02 AM EDT) HDL 57 mg/dL [facility] Comment: Interpretation: Risk Level Females Decreased >55mg/dL Average 50-55 mg/dL Increased <50 mg/dL CHOLESTEROL 154 0 - 240 mg/dL [facility] TRIGLYCERIDES 52 30 - 160 mg/dL [facility] LDL 87 50 - 129 mg/dL [facility] Comment: LDL levels in terms of risk for coronary heart disease: <100 mg/dL: Optimal 100-129 mg/dL: Near or above optimal 130-159 mg/dL: Borderline high 160-189 mg/dL: High >190 mg/dL: Very High CARDIAC RISK RATIO 2.7(L) 3.3 - 4.4 C [facility] Blood 09/09/2018 11:0 2 AM EDT 09/09/2018 11:07 AM EDT Jennifer CARBALLO LAB BLOOD BKR ORDERABLES Final Result Performing Organization Address City/State/[facility] Co de Phone Number [address] [address] * Comprehensive metabolic panel (09/09/2018 11:02 AM EDT) SODIUM 138 133 - 146 mmol/L [facility] POTASSIUM 4.3 3.3 - 5.1 mmol/L [facility] CHLORIDE 104 96 - 108 mmol/L [facility] CO2 22 21 - 35 mmol/L [facility] BUN 6 6 - 19 mg/dL [facility] CREATININE 0.70 0.5 - 1.5 mg/dL [facility] GLUCOSE 94 70 - 99 mg/dL [facility] ALBUMIN 4.1 3.9 - 4.8 g/dL [facility] TOTAL PROTEIN 7.2 6.5 - 8.0 g/dL [facility] CALCIUM 8.9 8.4 - 10.3 mg/dL [facility] ALKALINE PHOSPHATASE 71 39 - 117 U/L [facility] TOTAL BILIRUBIN 0.4 0.0 - 1.2 mg/dL [facility] AST 16 0 - 37 U/L [facility] ALT 9 0 - 40 U/L [facility] GLOBULIN 3.1 1 - 4.8 g/dL [facility] EGFR 113 >59 mL/min/1.7 3m2 [facility] Comment:If patient is black, multiply result by 1.159. Estimated glomerular filtration rate calculated using the CKD-EPI equation. ANION GAP 16 10 - 20 mmol/L [facility] Blood 09/09/2018 11:0 2 AM EDT 09/09/2018 11:07 AM EDT Jennifer CARBALLO LAB BLOOD BKR ORDERABLES Final Result [facility] [address] [place] [address] documented in this encounter Visit Diagnoses Diagnosis [...] documented as of this encounter Care Teams Hot Mill Worker Relationship Specialty Start Date End Date Jennie Sow MD [address] [place] [address] [email or web address] PCP - General Internal Medicine 09/07/18 Jennie Sow MD [address] [place] [address] [email or web address] Insurance Assigned Provider 03/04/24 08/04/25 documented as of this encounter Additional Source Comments The information contained in this document represents components of the legal health record. It is not the complete legal health record.[facility]
== END 2025-11-01 10:56 | disposition home or self-care (01) ==
LOC: HO.HMCFM 10:21
PROVIDERS: PCP Physician Assistant Medical; Visit Provider Physician Assistant Medical
DX: F90.0 Attention-deficit hyperactivity disorder, predominantly inattentive type (principal); R73.03 Prediabetes; D50.9 Iron deficiency anemia, unspecified; R79.89 Other specified abnormal findings of blood chemistry

== ENCOUNTER 2025-11-01 11:01 | Outpatient (REF) | payer BC, SELFPAY ==
[2025-11-01 13:59] LABS: MANUAL DIFF FLAG NO
[2025-11-01 14:03] LABS: Hematocrit 36.1 % (37.0-47.0); Hemoglobin 11.8 g/dl (12.0-16.0); Imm Gran Abs Auto 0.02 X10*3/uL (0.00-0.03); Imm Gran Pct Auto 0.3 % (0.0-0.4); Lymphocytes Absolute Auto 2.2 X10*3/uL (1.2-4.9); Mean Corpuscular HGB Conc 32.7 g/dl (31.0-35.0); Mean Corpuscular Hemoglobin 25.6 pg (27.0-33.0); Mean Corpuscular Volume 78.3 fL (80.0-98.0); NRBC Abs Auto 0.000 X10*3/uL (0.0-0.012); NRBC Pct Auto 0.0 /100WBC (0.0-0.2); Platelet Count 337 X10*3/uL (160-400); Red Blood Count 4.61 X10*6/uL (4.20-5.50); White Blood Count 6.5 X10*3/uL (4.8-10.8)
[2025-11-01 14:55] LABS: Iron 53 mcg/dL (30-160); Percent Iron Saturation 20 % (15-50); Total Iron Binding Capacity 271 mcg/dL (228-428); Unsaturated Iron Binding 218 ug/dL
[2025-11-01 15:04] LABS: Ferritin 33 ng/mL (10-250)
[2025-11-01 15:06] LABS: Folate 13.0 ng/mL (> or = 4.0); Vitamin B12 495 pg/mL (200-900)
[2025-11-01 18:25] LABS: Cannabinoid Screen Urine POSITIVE (Not Detect)
[2025-11-07 06:24] LABS: Vitamin D 25-OH, D2 <4 ng/mL; Vitamin D 25-OH, D3 25 ng/mL; Vitamin D 25-OH, Total 25 ng/mL (30-100)
== END 2025-11-01 11:02 | disposition home or self-care (01) ==
LOC: HO.WFDLDS 11:01
PROVIDERS: Visit Provider Physician Assistant Medical
DX: Z13.89 Encounter for screening for other disorder (principal); E55.9 Vitamin D deficiency, unspecified; D64.9 Anemia, unspecified; Z51.81 Encounter for therapeutic drug level monitoring
CPT/HCPCS: 80307; 82306; 82607; 82728; 82746; 83540; 85025